=== PATIENT | female | born 1940 | race Caucasian/White ===

== ENCOUNTER 2018-06-14 13:41 | Inpatient (IN) ==
[2018-06-14] MEDS ORDERED: ZOFRAN IV ONE (14:55)
--- NOTE | 2018-06-14 14:57 | PROVIDER DOCUMENTATION ---
HPI-General Adult - General Chief Complaint: Abnormal Lab[s] Stated Complaint: ABNORMAL LABS Time Seen by Provider: 06/14/18 14:13 Source: patient Allergies/Adverse Reactions: Patient Allergies Allergy/AdvReac Type Severity Reaction Status Date / Time No Known Allergies Allergy Verified 06/14/18 14:08 Home Medications: Home Medication List Medication Instructions Recorded Confirmed Last Taken Type Multivit with Iron-Minerals 1 each PO DAILY #100 tablet 04/05/17 04/25/17 04/25/17 07:00 Rx [Centravites 50 Plus] 1 Ondansetron HCl [Zofran] 4 mg PO Q4H PRN PRN #10 tablet 04/05/17 04/25/17 04/24/17 12:00 Rx 4 Anastrozole [Arimidex] 1 mg PO DAILY 04/24/17 04/25/17 04/25/17 07:00 History 1 Calcitonin,[place],Synthetic 3.7 ml NS DAILY 04/24/17 04/25/17 04/25/17 07:00 History [Calcitonin-[place]] 3.7 Calcium 500 mg PO DAILY 04/24/17 04/25/17 04/25/17 07:00 History 500 Cephalexin [Keflex] 500 mg PO TID 04/24/17 04/25/17 04/25/17 07:00 History 500 Cholecalciferol (Vitamin D3) 10,000 unit PO DAILY 04/24/17 04/25/17 04/25/17 07:00 History [Vitamin D3] 36579 Diphenhydramine [Benadryl] 25 mg PO QHS 04/24/17 04/25/17 04/24/17 20:00 History 25 Gabapentin 300 mg PO BID 04/24/17 04/25/17 04/25/17 07:00 History 300 Loratadine 10 mg PO DAILY 04/24/17 04/25/17 04/24/17 20:00 History 10 Melatonin 5 mg PO QHS 04/24/17 04/25/17 04/24/17 20:00 History 5 Oxycodone HCl/Acetaminophen 1 each PO PRN PRN 04/24/17 04/25/17 04/25/17 07:00 History [Oxycodone-Acetaminophen 10-325] 1 Potassium Gluconate [Potassium] 99 mg PO DAILY 04/24/17 04/25/17 04/25/17 07:00 History 99 - History of Present Illness -Gen Adult Nature of Presenting Problems: reports that pt was sent here from [facility] for abnormal abd u/s, abn labs (potassium creatine), lethargic, weakness and nausea. pt has history of breast cancer, now mets to her bone, liver and has the intractable nausea. pt c/o nausea and weakness. had a bm last night. no sob, cp, diarrhea, vomiting, abd pain. Review of Systems - Adult - REVIEW OF SYSTEMS - ADULT Constitutional: reports: no symptoms reported Eyes: reports: no symptoms reported Ears, Nose, Mouth & Throat: reports: no symptoms reported Cardiovascular: reports: no symptoms reported Respiratory: reports: no symptoms reported Gastrointestinal: reports: no symptoms reported Genitourinary: reports: no symptoms reported Musculoskeletal: reports: no symptoms reported Integumentary: reports: no symptoms reported Neurological: reports: no symptoms reported Psychiatric: reports: no symptoms reported Endocrine: reports: no symptoms reported Hematologic/Lymphatic: reports: no symptoms reported Allergic/Immunologic: reports: no symptoms reported All Other Systems: Reviewed and Negative Past History - Adult - PAST MEDICAL HISTORY-ADULT Review of Records: reports: Old Records Reviewed, Nursing Assessment Review, Medications Reviewed, Social history reviewed & non-contributory. Major Childhood Illnesses: reports: denies history Cardiovascular: reports: denies history Respiratory: reports: denies history Gastrointestinal: reports: denies history Obstetrical/Gynecological: reports: denies history Genitourinary: reports: denies history Musculoskeletal: reports: denies history Neurological: reports: denies history Endocrine/Immune: reports: denies history Other Conditions: reports: denies history - IMMUNIZATION STATUS Childhood Immunizations: See Nurse Assessment Flu Vaccine: See Nurse Assessment - FAMILY HISTORY Family History: reviewed, not pertinent - SOCIAL HISTORY Smoking: denies Substance Use: none/never Alcohol Use Frequency: never Living Situation: family Physical Exam-General - CONSTITUTIONAL General Appearance: mild distress, cachetic, lethargic, slow to respond - EYES Eyes: other (mild vision impairment) - HEAD, EARS, NOSE, MOUTH & THROAT HENMT: normocephalic/atraumatic, other (oral dry mucous membrane, poor dental h ygeine) - NECK Neck: non-tender, full range of motion - RESPIRATORY Respiratory: chest non-tender, lungs clear, normal breath sounds - CARDIOVASCULAR Cardiovascular: normal peripheral pulses, tachycardia - GASTROINTESTINAL (ABDOMEN) Abdominal Exam: abnormal bowel sounds, distended, mass, hepatomegaly, splenomegaly - MUSCULOSKELETAL Back Exam: normal inspection Extremity: normal range of motion, pedal edema, swelling (b/l pitting 2+) Peripheral Pulses: radial (R): 2+, radial (L): 2+ - SKIN Integumentary: normal color, normal turgor, warm/dry - NEUROLOGIC Neurologic: grossly normal - PSYCHIATRIC Psych/Mental Status: other (weak voice.) Progress - PLAN OF CARE/RESULTS Progress/Plan/Lab Results: Vital Signs - 8 hr 06/14/18 14:03 Temperature 97.6 F Pulse Rate 93 H Respiratory Rate 18 Blood Pressure 111/70 O2 Sat by Pulse Oximetry 97 Orders Category Date Time Status Cardiac Monitoring DIRECTED Care 06/14/18 14:48 Active Oxygen Therapy- ED Nursing DIRECTED Care 06/14/18 14:48 Active Saline Loc NOW Care 06/14/18 14:48 Active CHEST-PORTABLE [RAD] Stat Exams 06/14/18 14:48 Ordered CBC WITH ELECTRONIC DIFF [HEME] Stat Lab 06/14/18 14:48 Uncollected CK PROFILE [SP CHEM] Stat Lab 06/14/18 14:48 Uncollected COMPREHENSIVE METABOLIC PANEL [CHEM] Stat Lab 06/14/18 14:48 Uncollected LACTATE, PLASMA [CHEM] Stat Lab 06/14/18 14:48 Uncollected PROTIME WITH INR [COAG] Stat Lab 06/14/18 14:48 Uncollected PTT [COAG] Stat Lab 06/14/18 14:48 Uncollected TROPONIN T Stat Lab 06/14/18 14:48 Uncollected URINALYSIS [URINALYSIS] Stat Lab 06/14/18 14:49 Uncollected Altered Mental Status Stat Oth 06/14/18 14:48 Ordered EKG [EKG] Stat Ther 06/14/18 14:48 Ordered [facility] [address], [address], [place] [id number] Department of Imaging Patient: AIDEN STYLES ADM Date: 06/11/18 MR#: [id number] : 1940 ADM Status: REG CLI Age/Sex: 78/F Room/Bed: Loc: US Ordering Physician: Meg Rich Family Physician: None,PCP Reason for Procedure: ELEVATED LFTS MET BR CA ___ Signed EXAM: US GB < RUQ (LIMITED) 06/11/2018 HISTORY: ELEVATED LFTS MET BR CA TECHNIQUE: Right upper quadrant ultrasound. COMMENT: There is ascites. The liver is markedly nodular in contour and inhomogeneous in echotexture. The common bile duct measures less than 4 mm. There is antegrade flow in the portal vein. There are some hypoechoic nodules throughout the liver. This is consistent with metastatic disease. There are no previous studies available for comparison. There is some apparent sludge within the gallbladder without apparent shadowing. There is no sonographic Garcia sign. The visualized portions of the aorta and inferior vena cava are within normal limits. The pancreatic head and body are normal in appearance. IMPRESSION: Ascites. Hepatic metastatic disease. Sludge ball in the gallbladder. Electronically signed by Mikey Mann 06/11/2018 9:30 AM 06/11/18929 Interpreting Physician: Mikey Mann MD Dictated Date/Time: 06/11/18926 cc: Meg Rich; None,PCP Result Diagrams: 06/14/18 15:14 06/14/18 15:14 - EKG 1 Time of EKG reading by physician:: 15:25 EKG Read and Signed by:: Codi Gordon EKG Interpretation (*Must complete 3 of following elements*): Normal Rate: 74 Rhythm: nsr [place]: normal QRS: normal [place] Interval: normal ST Wave: normal - CONSULTS/PCP/HOSPITALIST Notification #1 *Consult/PCP/Hospitalist*: Kaye Time Discussed: 16:59 (Hyperkalemia, ARF, ascites, hepatic met dz. ) Consult Disposition: Admit Departure - Departure Date of Disposition Decision: 06/14/18 Time of Disposition Decision: 16:55 DIAGNOSIS: Hyperkalemia, Acute renal failure, Breast cancer metastasized to liver, Ascites Disposition: ADMITTED INPATIENT 09 Certified Medical Emergency: Emergent Condition: Stable Referrals and Follow-Ups: None,PCP [Primary Care Provider] - - Critical Care Note This patient required my direct & personal management of CC.: Yes Total Time (mins): 37 Critical Care Statement: This patient required my direct personal management to treat or rule out processes, the absence of which, could potentiallly result in sudden, clinically significant life or limb threatening deterioration. Attestation - Physician/ SUNITA Attestation The physician spent face to face time with patient:: Yes Advanced Practice Provider documentation review:: Supervising physician onsite and consulted in the evaluation and care of this patient. The physician did have a face to face encounter with the patient.
[2018-06-14 15:32] LABS: EOS# 0.04 X1000 (0.0-0.7); EOS% 0.6 % (0.0-10.0); HEMATOCRIT 36.5 % (37.0-47.0); HEMOGLOBIN 11.8 g/dL (12.0-16.0); IMM GRAN# 0.03 X1000 (0.0-0.04); IMM GRAN% 0.4 % (0.0-0.5); LYMPH# 0.87 X1000 (1.2-3.4); LYMPH% 12.7 % (20.5-51.1); MCH 29.1 PG (27-31); MCHC 32.3 g/dL (33-37); MCV 89.9 FL (81-99); MONO# 0.91 X1000 (0.11-0.59); MONO% 13.3 % (1.7-9.3); MPV 8.8 FL (7.4-10.4); PLT 278 X1000 (130-400); RBC 4.06 XMIL (4.2-5.4); RDW 17.2 % (11.5-14.5); WBC 6.85 X1000 (4.8-10.8)
--- NOTE | 2018-06-14 15:34 | Diag Imaging Result Doc PS360 ---
EXAM: CHEST-PORTABLE - 06/14/2018 HISTORY: weakness TECHNIQUE: Portable chest COMPARISON: 03/27/2017 FINDINGS: Heart size is normal. Inspiration is somewhat shallow. There is mild scarring at the lung bases. There is no dense consolidation, substantial pleural effusion, or pneumothorax identified. The bony structures are somewhat heterogeneous similar to the prior exam. IMPRESSION: Somewhat shallow inspiration. Mild basilar scarring. No other discrete acute changes. Electronically signed by Kp Booth 06/14/2018 3:32 PM
[2018-06-14 15:40] LABS: INR 1.22; PROTIME 16.3 Seconds (11.0-16.0)
[2018-06-14 15:41] LABS: PTT 33.2 Seconds (22.3-41.8)
[2018-06-14 16:15] LABS: ALB/GLOB RATIO 0.9; ALBUMIN 3.1 g/dL (3.5-5.0); CALCIUM 7.7 mg/dL (8.8-10.2); CREATININE 4.8 mg/dL (0.5-0.9); TOTAL BILIRUBIN 0.61 mg/dL (0.20-1.00); TOTAL PROTEIN 6.7 g/dL (6.3-8.3)
[2018-06-14 16:19] LABS: POTASSIUM 6.3 mmol/L (3.5-5.1)
[2018-06-14 16:23] LABS: URINE SOURCE CLEAN CATCH
[2018-06-14 16:29] LABS: CK INDEX 4.6 (0.0-2.5); CK-MB 19.59 ng/mL (0.0-5.0)
[2018-06-14 16:30] LABS: BILIRUBIN URINE SMALL (NEGATIVE); BLOOD URINE MODERATE (NEGATIVE); COLOR YELLOW; GLUCOSE URINE TRACE mg/dL (NEGATIVE); KETONE URINE TRACE mg/dL (NEGATIVE); LEUKOCYTES URINE TRACE (NEGATIVE); NITRITE URINE NEGATIVE (NEGATIVE); PH URINE 5.5; PROTEIN URINE 100 mg/dL (NEGATIVE); SP GRAVITY URINE 1.018; TURBIDITY URINE TURBID (CLEAR); UROBILINOGEN URINE 2 mg/dL (NORMAL)
[2018-06-14 16:32] LABS: UR EPITHELIAL CELLS >10 /HPF (<10); URINE BACTERIA NEGATIVE /HPF
[2018-06-14] MEDS ORDERED: NS 500 ML IV ONE (16:37)
[2018-06-14] MEDS ORDERED: CALCIUM GLUCONATE IV PUSH ONE (16:37)
[2018-06-14 16:47] LABS: URINE CASTS NONE SEEN; URINE CRYSTALS CA OXALATE PRESENT; URINE SMALL ROUND CELLS NONE SEEN; URINE YEAST NONE SEEN
[2018-06-14] MEDS ORDERED: HUMULIN R IV ONE (16:53)
[2018-06-14] MEDS ORDERED: D50W SYRINGE IV ONE (16:53)
[2018-06-14] MEDS ORDERED: NS 1,000 ML IV ONE (18:05)
[2018-06-14] MEDS ORDERED: TYLENOL PO PRN (18:57)
[2018-06-14] MEDS ORDERED: ZOFRAN IV PRN (18:57)
[2018-06-14] MEDS ORDERED: NS 1,000 ML IV SCH (19:00)
--- NOTE | 2018-06-14 21:12 | HISTORY AND PHYSICAL ---
PRIMARY CARE PROVIDER: ANDREE Queen. PRIMARY ONCOLOGIST: Dr. Freda Morales. CHIEF COMPLAINT: She complains of pain all over her body. She was actually sent here from the [facility] due to acute kidney injury. HISTORY OF PRESENT ILLNESS: Ms. Lesa Nielson is 78-year-old female with a medical history of breast cancer with bilateral mastectomies, receiving chemotherapy, followed by Dr. Morales. She is a very, very poor historian. She had a friend with her, so it was difficult to obtain very much information. I believe she is on an oral chemotherapy medication but it is unclear. She does have a history of dementia. In March of 2017, she was diagnosed the breast cancer and had her mastectomies. Now it has metastasized to bone and liver. She was at Dr. Morales's office today where they did routine labs and found that she was in acute kidney injury. The patient was called back to the Emergency Department from home. Here she is found to be hyperkalemic with potassium of 6.3. BUN is 73 and creatinine is 4.8. We will admit her, do some hydration. She is complaining of a lot of generalized pain, so we will continue her home medications for that. We will work her up renal rosas and consult Nephrology. PAST MEDICAL HISTORY: 1. Urinary tract infection history. 2. Arthritis. 3. Dementia. 4. Bilateral breast cancer with mastectomies. PAST SURGICAL HISTORY: 1. Right groin lymph node removal in the past. 2. Bilateral mastectomies. SOCIAL HISTORY: Denies tobacco. States she only drinks beer maybe once a month. Lives with her friend. She is with 3 children. FAMILY HISTORY: Positive for stroke and cancer. ALLERGIES: No known drug allergies. HOME MEDICATIONS: 1. Benazepril 5 mg p.o. nightly. 2. Fentanyl patch every 3 days. 3. Percocet 10 mg, one tab p.o. q.4h. 4. Calcitonin daily. 5. Neurontin 100 mg p.o. twice daily. 6. Iron 325 mg p.o. twice daily. 7. Lexapro 10 mg p.o. daily. 8. Omeprazole 40 mg p.o. twice daily. 9. Terbinafine topical twice daily. 10.Trazodone 50 mg p.o. daily. REVIEW OF SYSTEMS: Difficult to obtain. She just complains of pain all over her body but otherwise that is all I could get out of her. PHYSICAL EXAMINATION: VITAL SIGNS: Temperature 97.6 degrees, heart rate 74, respiratory rate 11, blood pressure 115/57, oxygen saturation 97% on room air. GENERAL: Ms. Lesa Nielson is a 78-year-old female. She is really not in acute distress; she just moans and groans about generalized body pain. She will answer some questions but she is very hard of hearing. HEENT: She keeps her eyes closed. Pupils are equal and reactive. She is atraumatic, normocephalic. She will not keep her eyes open long enough to perform extraocular movements. She has dry mucous membranes. NECK: Trachea is midline. CARDIOVASCULAR: S1, S2, regular rate and rhythm. No rubs, gallops, or murmurs. No lower extremity edema; +2 dorsalis and radial pulses. Negative JVD or carotid bruits. PULMONARY: Clear to auscultate bilateral breath sounds. No accessory muscle use or work of breathing noted. GASTROINTESTINAL: Soft, nontender, nondistended. Positive bowel sounds. EXTREMITIES: Moans and groans when I try to get her to perform range of motion. She is equal in strength on both sides. NEUROLOGIC: Oriented x name and place only. SKIN: Warm, dry, intact. LABORATORY DATA: White blood cell count 6000, hemoglobin 11, hematocrit 36, platelet count 278. INR is 1.22, PTT 33.2. Sodium 131, potassium 6.1, BUN 76, creatinine 4.8, glucose 135, calcium 7.7, bilirubin 0.61. AST 146, AST 41. CPK 425. Troponin 0.113. Albumin 3.1, lactate 2.0. Urinalysis with 100 protein, trace ketones, moderate blood, trace leukocytes, 10-20 white blood cells, 10-20 red blood cells; negative for bacteria. IMAGING: Chest x-ray: Somewhat shallow inspiration, mild basilar scarring. No acute findings. ASSESSMENT AND PLAN: 1. Acute kidney injury. Could be dehydration. It is difficult to get information. It could be medication induced. We will consult Nephrology. We will order an ultrasound of the renal system. Give her IV fluids and recheck it in the morning. Monitor her I's and O's. She has a Hoff catheter. 2. Hyperkalemia secondary to acute kidney injury. She received calcium gluconate, dextrose, insulin, IV fluids, and there is a pending recheck on the potassium level. 3. She has a history of breast cancer. We will consult Dr. Morales. 4. Metabolic encephalopathy. Hopefully this should improve with kidney function improvement. 5. Chronic pain syndrome secondary to metastasis of the breast cancer into the bone. We will continue her Percocet and fentanyl patch. Dictated by ANDREE Ambriz for Parker Anderson MD cc: ANDREE Ambriz MD
[2018-06-14 22:12] LABS: UR CREAT RANDOM 196.1 mg/dL (11-20)
[2018-06-14 22:27] LABS: CALCIUM 7.7 mg/dL (8.8-10.2); CREATININE 5.3 mg/dL (0.5-0.9)
[2018-06-14] MEDS ORDERED: DESYREL PO SCH (22:27)
[2018-06-14] MEDS ORDERED: NEURONTIN PO SCH (22:27)
[2018-06-14] MEDS ORDERED: PERCOCET-10 PO PRN (22:27)
[2018-06-14] MEDS ORDERED: ARICEPT PO SCH (22:27)
[2018-06-14 22:28] LABS: POTASSIUM 6.6 mmol/L (3.5-5.1)
[2018-06-14] MEDS ORDERED: KAYEXALATE PO ONE (22:36)
[2018-06-14] MEDS ORDERED: ALBUTEROL 0.5% INH CONC FOR HYPERKALEMIA INH ONE (22:36)
[2018-06-14 22:37] LABS: CK INDEX 4.6 (0.0-2.5); CK-MB 20.23 ng/mL (0.0-5.0)
[2018-06-14] MEDS: ALBUTEROL NEB INH SCH ×3 (22:59→23:01)
[2018-06-14] MEDS: PRILOSEC PO SCH (23:12)
[2018-06-14] MEDS: FERROUS SULFATE PO SCH (23:12)
[2018-06-15 02:58] LABS: CK INDEX 4.5 (0.0-2.5); CK-MB 19.46 ng/mL (0.0-5.0)
[2018-06-15] MEDS: ALBUTEROL NEB INH SCH ×3 (03:30→11:24)
[2018-06-15] MEDS ORDERED: NARCAN IV ONE (08:13)
[2018-06-15 08:15] LABS: BLOOD TYPE ARTERIAL; SAMPLE BLOOD
[2018-06-15 08:16] LABS: ALLEN TEST YES; BE -24.8 mmoll (-3.0-3.0); HCO3-(ACT) 5.6 mmoll (20.0-26.0); METHB 1.1 % (0.0-1.5); O2(CT) 14.6 mL/dL (15.0-23.0); O2HB 96.8 % (95.0-99.0); PO2(98.6) 137 mmHg (60-100); SAO2 98.7 % (95.0-100.0); THB 10.5 g/dL (11.5-17.4)
[2018-06-15] MEDS ORDERED: NARCAN ONE (08:16)
[2018-06-15 08:18] LABS: pH(98.6) 7.02 (7.35-7.45)
[2018-06-15 08:19] LABS: MODALITY CANNULA; PCO2(98.6) 17 mmHg (35-45)
[2018-06-15 08:21] LABS: INR 1.37; PROTIME 17.9 Seconds (11.0-16.0)
[2018-06-15 08:22] LABS: PTT 35.1 Seconds (22.3-41.8)
[2018-06-15 08:29] LABS: BASO# 0.01 X1000 (0.0-0.2); BASO% 0.1 % (0.0-0.8); EOS# 0.02 X1000 (0.0-0.7); EOS% 0.2 % (0.0-10.0); HEMATOCRIT 36.7 % (37.0-47.0); HEMOGLOBIN 11.3 g/dL (12.0-16.0); IMM GRAN# 0.14 X1000 (0.0-0.04); IMM GRAN% 1.7 % (0.0-0.5); LYMPH# 1.05 X1000 (1.2-3.4); MCH 28.9 PG (27-31); MCHC 30.8 g/dL (33-37); MCV 93.9 FL (81-99); MONO# 0.94 X1000 (0.11-0.59); MONO% 11.6 % (1.7-9.3); MPV 9.2 FL (7.4-10.4); NEUT# 5.92 X1000 (1.4-6.5); NEUT% 73.4 % (42.2-75.2); PLT 262 X1000 (130-400); RBC 3.91 XMIL (4.2-5.4); RDW 18.3 % (11.5-14.5); WBC 8.08 X1000 (4.8-10.8)
[2018-06-15 08:44] LABS: ALB/GLOB RATIO 0.7; ALBUMIN 2.9 g/dL (3.5-5.0); CREATININE 5.2 mg/dL (0.5-0.9); MAGNESIUM 3.1 mg/dL (1.5-2.7); TOTAL BILIRUBIN 0.54 mg/dL (0.20-1.00); TOTAL PROTEIN 6.9 g/dL (6.3-8.3)
[2018-06-15] MEDS ORDERED: MAXIPIME 2 GM in NS 100 ML IV ONE (08:46)
[2018-06-15] MEDS ORDERED: SODIUM BICARBONATE 8.4% IV PUSH ONE ×2 (08:49→11:48)
[2018-06-15 08:55] LABS: BANDS 2 % (0-1); LYMPHS 8 % (21-51); MONO 2 % (1-9); SEGS 86 % (42-75)
[2018-06-15] MEDS ORDERED: FORTICAL NAS SCH (09:00)
[2018-06-15] MEDS ORDERED: LEXAPRO PO SCH (09:00)
[2018-06-15 09:01] LABS: POTASSIUM 6.3 mmol/L (3.5-5.1)
[2018-06-15] MEDS: FERROUS SULFATE PO SCH (09:10)
[2018-06-15] MEDS: PRILOSEC PO SCH (09:11)
[2018-06-15] MEDS ORDERED: HUMULIN R SUBQ ONE (09:11)
[2018-06-15] MEDS ORDERED: D50W SYRINGE IV ONE (09:12)
[2018-06-15] MEDS ORDERED: LACTULOSE PO ONE (09:25)
[2018-06-15] MEDS ORDERED: NS 1,000 ML IV SCH (09:29)
[2018-06-15] MEDS ORDERED: ALBUTEROL 0.5% INH CONC FOR HYPERKALEMIA INH ONE (09:42)
[2018-06-15] MEDS ORDERED: LR 1,000 ML IV SCH (09:45)
[2018-06-15] MEDS ORDERED: MAXIPIME 1 GM in NS 50 ML IV SCH (10:00)
[2018-06-15] MEDS ORDERED: VANCOMYCIN 1 GM/NS 1 GM/250 ML IVPB IV ONE (10:00)
--- NOTE | 2018-06-15 10:18 | Diag Imaging Result Doc PS360 ---
EXAM: CT HEAD W/O CONTRAST INDICATION: unresponsive TECHNIQUE: This exam was performed using automated exposure control, adjustment of mA or kV according to patient size, and/or use of iterative reconstruction technique. COMPARISON: MRI dated 04/30/2017. No prior head CT is available for comparison. FINDINGS: There is stable right occipital encephalomalacia. There is no definite acute infarct given the limited sensitivity of CT versus MRI. There is no discrete intracranial mass, mass effect, or intracranial hemorrhage. The surrounding soft tissues and bony structures are essentially unremarkable. IMPRESSION: Stable right occipital encephalomalacia but no evidence of acute intracranial pathology by CT. Electronically signed by Ash Holm 06/15/2018 10:16 AM
[2018-06-15] MEDS ORDERED: VANCOMYCIN IV PER PHARMACY MISC SCH (10:25)
--- NOTE | 2018-06-15 10:36 | Diag Imaging Result Doc PS360 ---
EXAM: CT THORAX/ABD/PELVIS W/O CON INDICATION: sob; distended abd TECHNIQUE: This exam was performed using automated exposure control, adjustment of mA or kV according to patient size, and/or use of iterative reconstruction technique. COMPARISON: None. FINDINGS: CHEST: There are consolidations at both lung bases suggesting possible aspiration pneumonia. There is also at least a component of atelectasis. There is a 3 mm noncalcified nodule in the inferior left upper lobe that is nonspecific but probably represents a tiny granuloma. There is no pleural fluid collection and there is no pneumothorax. An NG tube is in place. There is some oral contrast and gas in the esophagus indicating a degree of gastroesophageal reflux. The heart is mildly prominent. No significant mediastinal or hilar lymphadenopathy can be identified given the limitations of unenhanced CT. There is diffuse sclerotic metastases throughout the thoracic skeleton. ABDOMEN/PELVIS: There is large volume ascites throughout the abdomen and pelvis. The liver is very heterogeneous throughout likely representing diffuse metastatic disease to the liver. Full evaluation is limited with no IV contrast. The gallbladder is not clearly identified. The spleen is unremarkable. The pancreas is difficult to appreciate on this unenhanced study. The visualized portion is grossly unremarkable. The adrenal glands and kidneys are grossly unremarkable. There is a Hoff catheter in the urinary bladder and it is decompressed. There appears to be a coarse calcific density associated with the uterus on the left that could represent a calcified uterine fibroid. As imaged with unenhanced CT, the reproductive tract is grossly unremarkable, otherwise. No bowel wall thickening is noted and there is no evidence of bowel obstruction. The greater omentum appears thickened and edematous. This may simply be due to the adjacent ascites. Carcinomatosis cannot be excluded, however. There are diffuse sclerotic metastases throughout the lumbar spine, sacrum, pelvis, and hips. IMPRESSION: 1.Consolidations at the lung bases suggesting possible aspiration pneumonia and also atelectasis. 2.Oral contrast and gas in the esophagus suggesting some degree of gastroesophageal reflux. 3.Large volume ascites. 4.Very heterogeneous liver likely representing diffuse metastatic disease. 5.Edematous and thickened greater omentum that may simply be due to the ascites. However, mesenteric carcinomatosis is not excluded. 6.Diffuse skeletal metastases. Electronically signed by Ash Holm 06/15/2018 10:34 AM
[2018-06-15 10:52] LABS: ALLEN TEST YES; BE -21.9 mmoll (-3.0-3.0); BLOOD TYPE ARTERIAL; HCO3-(ACT) 7.8 mmoll (20.0-26.0); METHB 0.9 % (0.0-1.5); O2(CT) 13.2 mL/dL (15.0-23.0); O2HB 93.9 % (95.0-99.0); PCO2(98.6) 24 mmHg (35-45); PO2(98.6) 86 mmHg (60-100); SAMPLE BLOOD; SAO2 95.7 % (95.0-100.0); THB 9.9 g/dL (11.5-17.4)
--- NOTE | 2018-06-15 10:52 | PROGRESS NOTE ---
DATE: 06/15/2018 SUBJECTIVE: This morning, I saw Ms. Nielson in her room. There is a male family friend who was also there. I was made to understand that Ms. Nielson got admitted yesterday mainly because of abnormal labs from her Oncology office. After talking to the daughter, I also gathered that Ms. Nielson has known case of bilateral breast cancer status post bilateral mastectomy. Follows up with Dr. Morales, and she gets a monthly injection for some bone maintenance therapy. She has been having this abdominal distention for a couple weeks. She went to her oncologist yesterday for her monthly injection, and was sent to do labs and also an ultrasound. She was sent to the emergency room because of abnormal labs. In the emergency room she was seen and evaluated and got admitted. Briefly, it appears that her CBC was fairly unremarkable by her chemistry on admission that did show a potassium of 6.3, a sodium of 131. Bicarb at the time was 19 and creatinine was 4.8. Liver enzymes were also abnormal. She was subsequently admitted for further medical care. This morning, she is less responsive. Early on, she was even a whole lot less responsive than now. Her fentanyl patch was removed and Narcan was given to her. Since then, there has been more groaning and more interaction than before. OBJECTIVE: Current vitals: Blood pressure is 64/48. A repeat showed that it had improved to 101/70 with a pulse of 68 and respiration rate of 25. Temperature is 98.9 degrees. The patient was saturating about 92%, is currently about 93%. General exam: Ms. Nielson is a 78-year-old elderly female. She was in bed. She seems to be tachypneic. Mucosa is slightly dry, anicteric and acyanotic Neck: Some rigidity, but it is in all planes. She has nonfocalizing neck. There was no JVD. Chest: Air entry was bilaterally reduced. I did not hear any crepitations or rhonchi Cardiovascular: Slightly tachycardic, but no murmurs, no rubs, no gallops. Abdomen: Soft and is distended. The patient seems to groan a little bit more when you palpate the abdomen. There were bowel sounds present. Extremities: Trace to 1+ pedal edema. Distal pulses were present. GENERAL ACCOUNTING MANAGER: The patient is inattentive, will open her eyes. Occasionally will follow some basic commands. She was able to stick out her tongue when I asked her to, and she was able to wiggle her toes when I asked her, but for the most part she looks very inattentive, non engaging and does not follow commands, but she will withdrawal all her extremities and she has eye opening. LABORATORY DATA: WBC is currently at 8.08, hemoglobin is 11.3, platelet count of 263. Coagulation panel shows PT of 17.9, INR is 1.37. Chemistry is also reviewed. Sodium is 135, potassium is 6.3, chloride is 97, bicarbonate is down to 6 with an anion gap of 32. BUN has gone up to 72 and creatinine is up to 5.6. Liver enzymes are also trending up. No cultures have been done yet. MEDICATIONS: I have reviewed current medications and I withheld all her home medications for now. IMAGING STUDIES: Currently there is a chest x-ray that did show shallow inspiration. There is mild bibasilar scarring. No other discrete acute changes. ASSESSMENT: 1. Altered mental status likely a combination of renal/ metabolic and probably drug related. Questionable if there is any infectious component. We will continue correcting the acid base and the metabolic component, and also cover the patient broadly with intravenous antibiotics. Cultures have been done, and we will follow accordingly. 2. Acute kidney injury. The patient seems to be currently anuric was hypotensive. ATN is very likely. There is an ultrasound from the twenty-third, which did not seem to have any obstructive pattern, but this was mainly on the right upper quadrant. There was no mention of the kidneys. So, we are going to do a CT scan of the abdomen and pelvis to give us a better idea what is going on in the intra- abdominal cavity. 3. Severe high anion gap metabolic acidosis secondary to lactic acid. On the arterial blood gas, lactic acid has gone to 12.6. I presume this is all from hypoperfusion. We are going to continue with intravenous fluids. 4. Hypotension. We think this is a combination of hypovolemic shock and probably also sepsis. Drugs could also be confounding to this. Her fentanyl patch has been removed. Blood pressure has improved with intravenous resuscitation. Patient will be transferred to the intensive care unit. Cultures have been done. Antibiotics have been started, and we will trend her vitals. 5. History of metastatic breast cancer to bones and to liver. 6. Transaminitis presumably from the metastatic disease to the liver on top of what seems to be now shocky liver. 7. Tachypneic. I think it is just a response to the severe metabolic acidosis. However, the ABG shows that the patient is also actually retaining pCO2. We are going to repeat this. If the trend continues to return, we will intubate the patient at least to get the respiratory part under control as we prado with the metabolic component. PLAN: So, in general, Ms. Nielson is critically sick. I have reached out to the daughter on the phone. For now, she is still not very sure what the other siblings want to do in terms of resuscitation status, and she says she will call us back. So for now Ms. Nielson continues to be full code, so we are going to move her to the ICU. We also discussed the possibility that Ms. Nielson will need dialysis, and the daughter is fine with that. So, Nephrology has been consulted and will also consult Surgery this morning for better IV access, which might probably be needed for dialysis as well. CRITICAL TIME SPENT: One hour. cc: Leroy Christian MD MTDD
[2018-06-15 10:53] LABS: MODALITY CANNULA
[2018-06-15 10:54] LABS: pH(98.6) 7.06 (7.35-7.45)
--- NOTE | 2018-06-15 11:38 | GENERAL SURGERY CONSULTATION ---
DATE: 06/15/2018 HISTORY OF PRESENT ILLNESS: This is a 78-year-old female with a history of breast carcinoma. She presents with encephalopathy, hyperkalemia, lactic acidosis. She was transferred to the ICU for further management. Dr. Teixeira is treating her hyperkalemia medically at this point. She does have dementia. 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 She is obtunded, nonresponsive. In speaking with Dr. Teixeira, he does not plan dialysis at this juncture. PAST MEDICAL HISTORY: History of UTI, arthritis, dementia, breast cancer treated by Dr. Morales. She has had bilateral mastectomies, now with metastasis. PAST SURGICAL HISTORY: Excision of right groin lymph node and bilateral mastectomy. SOCIAL HISTORY: Occasional alcohol. No tobacco. She does have children, none of who are accessible at this juncture. Friend is in and out of the ICU. FAMILY HISTORY: Significant for cancer. REVIEW OF SYSTEMS: Not obtainable. PHYSICAL EXAMINATION: Vital signs: Temperature is 98.9 degrees, pulse 113, blood pressure 106/43, oxygen saturation is 97%. General: She appears awake but nonresponsive. HEENT: No scleral icterus. Cardiovascular: Sinus tachycardia. Pulmonary: Breathing is somewhat labored. Abdomen: Tensely distended, non tympanic with no palpable mass. No peritonitis. Integument: Warm, dry. Extremities: She has peripheral vascular lower extremity edema. Psychiatric: Nonresponsive. Neurologic: Nonresponsive. LABORATORY DATA: White count is 8, hematocrit 36, platelets 262,000. pH is 7.02 with a bicarb of 17, O2 of 137. Lactate is 12.6. Potassium is 5.6, creatinine is 5.2. Bilirubin 0.54. AST, ALT, and alkaline phosphatase are all elevated. Troponins are elevated and climbing. Urinalysis is positive. I reviewed her CT scan of the head that shows chronic changes, and her CT of the abdomen that shows metastatic disease with ascites. ASSESSMENT AND PLAN: A 78-year-old female who is profoundly ill. This is end stages of her metastatic carcinoma. Dr. Morales has been consulted. I have talked to Dr. Teixeira. He does not plan to start dialysis for fear of making her worse, and will treat her kalemia medically. We would be happy to place IV access, but currently she has 2 good peripheral veins per the nurse and has adequate access from a medication administration standpoint. We will hold off on placing dialysis access at this juncture but would be happy to if in the future she needs this. cc: Cherrie Best MD
--- NOTE | 2018-06-15 11:45 | NEPHROLOGY CONSULTATION ---
DATE: 06/15/2018 REASON FOR CONSULTATION: Acute kidney injury and metabolic acidosis with hyperkalemia. HISTORY OF PRESENT ILLNESS: Ms. Nielson is a 78-year-old white female who was admitted to the hospital on yesterday. She was seen in [facility] [place] and had labs collected. She was contacted at home and instructed to present to the emergency room because of abnormal labs. She has breast cancer, for which she had bilateral mastectomy approximately 1 year ago. She now has extensive metastases including bone and liver. On presentation she complained of weakness and nausea. She also had constipation pain but no shortness of breath. Her initial evaluation in the emergency room found her blood pressure to be 111/70, with heart rate 93, respiration 18. She was admitted to the floor where she was treated with IV fluids but no empiric antibiotics. Her home narcotics were continued. Over the evening she had essentially no urine output and developed progressive hypotension. This morning, she was tachycardic, hypotensive, unresponsive. Her repeat evaluation today found worsening hyperkalemia, profound metabolic acidosis, and worsening renal function. She is being moved to the intensive care unit. She is receiving aggressive volume resuscitation, IV bicarbonate, IV antibiotics. She received Narcan and her fentanyl was removed. We were asked to assist with her management. Her outpatient chemotherapy regimen is not immediately available to me. I have reached out to Dr. Morales. PAST MEDICAL HISTORY: As above. She also has a history of dementia and arthritis. HOME MEDICATIONS: Her home medications include oxycodone, donepezil, gabapentin, omeprazole, iron, terbinafine, escitalopram, trazodone, fentanyl, and calcitonin. ALLERGIES: None. Social history, family history and review of systems are obtained only through the chart. She is and has 3 adult children. Lives with a friend. PHYSICAL EXAMINATION: Vital Signs: Blood pressure 64/48, heart rate 51, respirations 25, afebrile. General: She is unresponsive and acutely ill. She does not respond to any verbal stimuli. She does moan and move extremities spontaneously but in a limited fashion. She has rather diffuse muscle rigidity such that I cannot passively open her mouth and her neck is stiff, but she also has stiffness in her elbows and hips. Skin: Cool and dry, with some mottling around the knees. HEENT: Pupils are equal. Conjunctivae are pink. Oropharynx is not examined. Neck: Neck veins are not clearly elevated. No hepatojugular reflux could be elicited. Carotid upstroke is symmetrical. Trachea is midline. Heart: PMI is nondisplaced. Regular rate and rhythm. No gallops. Lungs: The lungs have equal excursion, equal breath sounds. No crackles. Abdomen: Distended, but somewhat firm. Bowel sounds are not appreciated. No palpable organomegaly. No discrete tenderness. Extremities: The extremities have no edema, clubbing, or cyanosis. Distal pulses are difficult to palpate in the feet but normal capillary refill. Neurologic: Nonfocal except as above. IMPRESSION: 1. Acute kidney injury. Likely acute tubular necrosis secondary to sepsis. Volume resuscitation in order to exclude prerenal causes is appropriate. Abdominal imaging. She does not require dialysis at this time but may develop indications very soon. 2. Hyperkalemia. This has been treated with insulin and albuterol. I do not believe that using the GI tract is either practical or advisable so we will simply use the above and observe her response. She may require dialysis if it does not improve. 3. Metabolic acidosis. Pure anion gap acidosis with markedly elevated serum lactate. No other obvious cause. Likely secondary to sepsis, and supportive measures are appropriate. Target pH greater than 7.15. May require intubation though she is compensating appropriately at this time. Revisit in ICU. Eyes open. Mumbles a few words. Moves legs spontaneously. Will change IVF to D5w bicarbonate. cc: Aroldo Teixeira MD [facility]
[2018-06-15] MEDS ORDERED: SODIUM BICARBONATE 8.4% ONE (11:54)
[2018-06-15] MEDS: LOKELMA POWDER PACKET PO SCH (12:01)
[2018-06-15] MEDS: SODIUM BICARBONATE 8.4% 150 MEQ in D5W 1,000 ML IV SCH ×2 (13:28→22:46)
--- NOTE | 2018-06-15 14:30 | Diag Imaging Result Doc PS360 ---
US ABD PARACENTESIS W S/I - 06/15/2018 INDICATION: ascites COMPARISON: 06/11/2018 FINDINGS: Limited sonographic views of the abdomen were provided, which were performed for localization purposes prior to paracentesis performed by Dr. Christian. Large volume ascites is noted similar to the previous study. IMPRESSION: Large volume ascites as described. Electronically signed by Ash Holm 06/15/2018 2:28 PM
[2018-06-15] MEDS ORDERED: ALBUMIN 25% IV ONE (14:46)
[2018-06-15 15:02] LABS: BODY FLUID SOURCE PERITONEAL FLUID; WBC BF 385 /cumm
[2018-06-15 15:06] LABS: MONOS 68 %; POLYS 32 %
[2018-06-15 15:17] LABS: BASO# 0.02 X1000 (0.0-0.2); BASO% 0.3 % (0.0-0.8); EOS# 0.01 X1000 (0.0-0.7); EOS% 0.1 % (0.0-10.0); HEMATOCRIT 32.3 % (37.0-47.0); HEMOGLOBIN 10.2 g/dL (12.0-16.0); IMM GRAN# 0.07 X1000 (0.0-0.04); IMM GRAN% 0.9 % (0.0-0.5); LYMPH# 0.73 X1000 (1.2-3.4); LYMPH% 9.3 % (20.5-51.1); MCH 29.2 PG (27-31); MCHC 31.6 g/dL (33-37); MCV 92.6 FL (81-99); MONO# 1.14 X1000 (0.11-0.59); MONO% 14.6 % (1.7-9.3); NEUT# 5.86 X1000 (1.4-6.5); NEUT% 74.8 % (42.2-75.2); PLT 188 X1000 (130-400); RBC 3.49 XMIL (4.2-5.4); WBC 7.83 X1000 (4.8-10.8)
--- NOTE | 2018-06-15 15:17 | OPERATIVE NOTE ---
PROCEDURE DATE: 06/15/2018 TIME OF PROCEDURE: 2:15 p.m. TYPE OF PROCEDURE: Large volume paracenteses. INDICATION: Newly diagnosed large ascites for both therapeutic and diagnostic purposes. PROCEDURE DESCRIPTION: Ms Nielson was completely altered so she could not give consent by herself. The nurses reached out to the daughter who gave consent for paracenteses to be done. Ultrasound was used to localize the deepest pocket. This was subsequently marked. The skin was prepped in sterile fashion and 1% lidocaine was used as a local anesthetic agent. A little niche was subsequently made at the marked area and the paracentesis trocar was advanced under negative pressure until ascitic fluid was obtained. The trocar was advanced and the needle was retrieved. An initial 50 mL of cloudy, straw colored fluid was initially aspirated for analysis. Subsequently, the draining system was attached and a total of 5850 mL of ascitic, cloudy, straw-looking color fluid was obtained. The patient tolerated the procedure very well. Postoperative vitals remain stable. The fluid was sent to the lab for analysis. No immediate post complications and very minimal blood loss during the procedure. cc: Leroy Christian MD MTDD
[2018-06-15 15:25] LABS: TOTAL PROT BODY FLUID 3.6 g/dL
[2018-06-15 15:29] LABS: LYMPHS 8 % (21-51); MONO 10 % (1-9); NRBC 2 % (0-0); SEGS 80 % (42-75)
[2018-06-15 15:31] LABS: ALBUMIN BODY FLUID 1.9 g/dL; AMYLASE BODY FLUID 35 U/L
[2018-06-15 16:13] LABS: ALB/GLOB RATIO 0.7; ALBUMIN 2.5 g/dL (3.5-5.0); CALCIUM 7.4 mg/dL (8.8-10.2); CREATININE 5.7 mg/dL (0.5-0.9); MAGNESIUM 2.7 mg/dL (1.5-2.7); PHOSPHORUS 7.6 mg/dL (2.7-4.5); POTASSIUM 5.3 mmol/L (3.5-5.1); TOTAL BILIRUBIN 0.55 mg/dL (0.20-1.00); TOTAL PROTEIN 6.2 g/dL (6.3-8.3)
[2018-06-15 17:41] LABS: URINE SOURCE CATH
[2018-06-15 18:03] LABS: BILIRUBIN URINE NEGATIVE (NEGATIVE); BLOOD URINE LARGE (NEGATIVE); COLOR YELLOW; GLUCOSE URINE 100 mg/dL (NEGATIVE); KETONE URINE NEGATIVE (NEGATIVE); LEUKOCYTES URINE SMALL (NEGATIVE); NITRITE URINE NEGATIVE (NEGATIVE); PROTEIN URINE 300 mg/dL (NEGATIVE); SP GRAVITY URINE 1.013; TURBIDITY URINE HAZY (CLEAR); UROBILINOGEN URINE NORMAL (NORMAL)
[2018-06-15 18:04] LABS: UR EPITHELIAL CELLS <10 /HPF (<10); URINE BACTERIA NEGATIVE /HPF; URINE RBC TNTC /HPF (<10); URINE WBC 20-40 /HPF (<10)
[2018-06-15 18:05] LABS: UR CREAT RANDOM 71.1 mg/dL (11-20)
[2018-06-15] MEDS: LACTULOSE PO SCH (21:12)
[2018-06-15] MEDS: APIDRA SUBQ SCH (21:13)
[2018-06-15] MEDS: NEO-SYNEPHRINE 50 MG in NS 250 ML IV SCH (22:06)
[2018-06-16 03:29] LABS: BASO# 0.03 X1000 (0.0-0.2); BASO% 0.4 % (0.0-0.8); EOS# 0.04 X1000 (0.0-0.7); EOS% 0.5 % (0.0-10.0); HEMATOCRIT 28.1 % (37.0-47.0); HEMOGLOBIN 9.2 g/dL (12.0-16.0); IMM GRAN# 0.04 X1000 (0.0-0.04); IMM GRAN% 0.5 % (0.0-0.5); LYMPH# 1.12 X1000 (1.2-3.4); LYMPH% 13.1 % (20.5-51.1); MCH 29.5 PG (27-31); MCHC 32.7 g/dL (33-37); MCV 90.1 FL (81-99); MONO% 16.4 % (1.7-9.3); NEUT# 5.91 X1000 (1.4-6.5); NEUT% 69.1 % (42.2-75.2); PLT 173 X1000 (130-400); RBC 3.12 XMIL (4.2-5.4); RDW 17.6 % (11.5-14.5); WBC 8.54 X1000 (4.8-10.8)
[2018-06-16 03:45] LABS: ALB/GLOB RATIO 1.2; ALBUMIN 3.3 g/dL (3.5-5.0); CREATININE 5.9 mg/dL (0.5-0.9); MAGNESIUM 2.4 mg/dL (1.5-2.7); PHOSPHORUS 5.6 mg/dL (2.7-4.5); POTASSIUM 5.1 mmol/L (3.5-5.1); TOTAL BILIRUBIN 0.61 mg/dL (0.20-1.00)
[2018-06-16] MEDS: NEO-SYNEPHRINE 50 MG in NS 250 ML IV SCH ×4 (04:56→13:10)
[2018-06-16 05:12] LABS: ALLEN TEST YES; BE -10.4 mmoll (-3.0-3.0); BLOOD TYPE ARTERIAL; HCO3-(ACT) 16.8 mmoll (20.0-26.0); METHB 0.5 % (0.0-1.5); O2(CT) 13.8 mL/dL (15.0-23.0); O2HB 95.7 % (95.0-99.0); PCO2(98.6) 23 mmHg (35-45); PO2(98.6) 78 mmHg (60-100); SAMPLE BLOOD; THB 10.2 g/dL (11.5-17.4); pH(98.6) 7.37 (7.35-7.45)
[2018-06-16 05:14] LABS: MODALITY CANNULA
[2018-06-16] MEDS: APIDRA SUBQ SCH ×3 (06:00→16:01)
--- NOTE | 2018-06-16 07:21 | Diag Imaging Result Doc PS360 ---
EXAM: CHEST-PORTABLE HISTORY: dyspnea TECHNIQUE: Chest single view COMPARISON: 06/14/2018 FINDINGS: Slight improvement in the inspiratory effort compared the prior study. No cardiomegaly. A nasogastric tube overlies the esophagus and stomach. Mild increased interstitial markings similar to the prior study. No pleural effusions identified. IMPRESSION: Improved inspiratory effort Electronically signed by Wilbert Collazo 06/16/2018 7:19 AM
[2018-06-16] MEDS ORDERED: LEVOPHED 8 MG in D5 1/2 NS 250 ML IV SCH (07:30)
[2018-06-16] MEDS: SODIUM BICARBONATE 8.4% 150 MEQ in D5W 1,000 ML IV SCH ×3 (08:14→17:00)
[2018-06-16] MEDS: LACTULOSE PO SCH (08:17)
[2018-06-16] MEDS: LOKELMA POWDER PACKET PO SCH (08:18)
[2018-06-16] MEDS ORDERED: DURAGESIC 12 MICROGM/HR PATCH TD SCH (09:00)
[2018-06-16] MEDS ORDERED: SOLU-CORTEF IV ONE (09:23)
[2018-06-16] MEDS ORDERED: NORCURON ONE (09:55)
[2018-06-16] MEDS ORDERED: QUELICIN ONE (09:56)
[2018-06-16] MEDS ORDERED: AMIDATE ONE (09:56)
[2018-06-16] MEDS ORDERED: VERSED ONE (09:56)
[2018-06-16] MEDS ORDERED: NS IV SCH (10:00)
[2018-06-16] MEDS ORDERED: CUBICIN IV SCH (10:00)
[2018-06-16] MEDS ORDERED: DIPRIVAN 1% 1,000 MG/100 ML BOTTLE IV SCH (10:00)
[2018-06-16] MEDS ORDERED: NORCURON IV ONE ×2 (10:00→10:01)
[2018-06-16] MEDS ORDERED: VERSED IV ONE (10:02)
--- NOTE | 2018-06-16 10:11 | PROGRESS NOTE ---
DATE: 06/16/2018 SUBJECTIVE: This morning, Ms. Nielson is seen in the ICU. She is critically sick. There is a daughter by the name of Ms. Terrell, who was at the bedside at the time of the encounter. The interim history is that Ms. Nielson continues to have episode of persistent hypotension during last night, and she was started on Marty-Synephrine. Early this morning, she had maxed out on Marty- Synephrine, and was started on Levophed. OBJECTIVE: Vital Signs: Blood pressure is 104/46, pulse is 64, respirations are 28, temperature 97.7 degrees. General: Mr. Nielson is in bed, seems to be in respiratory distress. HEENT: Mucosa is pink and moist. Anicteric. Acyanotic. Neck: Supple. There is positive JVD. Chest: Air entry is bilaterally reduced. There are diffuse crackles in both lung ayon. Cardiovascular: Tachycardic, but no murmurs, no rubs. GI: Abdomen is soft. The patient grunts with abdominal palpation. There is a central midline to right upper quadrant mass consistent with the liver. Extremities: About 1+ pedal edema. : Hoff catheter is in place. BEAD PICKER: The patient is stuporous. Will barely move the lower extremities to painful stimulation, but for the most part, she looks more compromised than yesterday. Pupils are equal and sluggishly reactive. Both lower extremities will show positive Babinski going up. LABORATORY DATA: WBC is 8.54, hemoglobin is 9.2, platelet count of 173,000. Chemistry is also reviewed. Potassium is down to 5.1, bicarb is up to 14, creatinine is 5.9, BUN is 71. The patient's liver enzymes have doubled with AST up to 1150, ALT is 240. Fluid analysis from yesterday has also been reviewed. So far, microbiology data shows the blood cultures are still pending. Peritoneal fluid is still pending. I do not see any Gram stain done on the peritoneal fluid. CURRENT MEDICATIONS: Have also been reviewed. The antimicrobials include cefepime, vancomycin has been discontinued, and daptomycin has been started. IMAGING STUDIES: A chest x-ray this morning shows improved inspiratory effort. ABG this morning showed a lactate level of 11.90. The pH has significantly improved to 7.37. ASSESSMENT: 1. Multiorgan failure. Etiology is currently unclear. 2. Unresponsiveness, likely due to toxic metabolic encephalopathy. 3. Acute kidney injury, presumably acute tubular necrosis. The patient continues to be anuric. 4. Severe high anion gap metabolic acidosis due to lactic acidosis. PH has improved. However, the patient continues to be remarkably high in lactic acid, presumably from hypoperfusion. 5. Refractory hypotension. We think this is a combination of a hypovolemic shock, sepsis, and probably cardiac dysfunctions as well. The patient is currently on Levophed and Marty- Synephrine, and we will give the patient also stress doses of hydrocortisone. 6. History of metastatic breast cancer to bones and to liver noted. 7. Transaminitis, presumably due to shock liver on the background of breast metastases to the liver. Will consult GI as well. 8. Massive ascites. The patient is status post large-volume paracentesis. The fluid analysis has a SAAG which is less than 1.1, which means the physiology behind the ascites is not portal hypertension, and it could probably be something else. At this point, the fluid cell count is predominantly lymphocytic, which would be concerning for either viral or microbacterial or a malignant etiology. Will be waiting on the cytology and cultures 9. Respiratory failure. The patient is clearly tachypneic, has a lot of congestion in the lungs, partly because of the intravenous fluids, but I think it is just the fact that the patient is remarkably sick. At this point, I think she needs to be intubated. However, the family is going to make a decision and let us know if they will want her intubated. In general, Ms. Nielson is extremely and critically sick. She is currently on two pressors. She is on broad-spectrum antibiotics and she is on intravenous fluids. We have started her on stress doses of steroids, and we have changed the vancomycin to daptomycin. She meets criteria to be intubated. However, the family is debating if they want that at all. I have spoken to the daughter who was at the bedside, and by name is Nidhi, and I have also spoken on the phone with Ms. Ramirez, who is said also to be another daughter, and she is going to reach out to the other two brothers and then let us know if they would want her intubated. I discussed this case also yesterday with Nephrology, and because of her hemodynamic instability, they do not think the patient will tolerate any renal replacement therapy at this point. In general, I think Ms. Nielson will most likely not survive this hospital course because of the multiorgan failure and the critical nature of her current diseases. We will await further recommendations from the family, and then go from there. TIME SPENT: Critical time spent is 1 hour 45 minutes. cc: Leroy Christian MD MTDD
--- NOTE | 2018-06-16 10:29 | OPERATIVE NOTE ---
PROCEDURE DATE: TIME OF PROCEDURE: 10:00. TYPE OF PROCEDURE: Endotracheal intubation. INDICATION: Respiratory failure and altered mental status, to protect airway and also for respiratory support. CONSENT: Consent was verbally obtained from Ms. Terrell, who is the daughter who was at the bedside. PROCEDURE NOTE: Ms. Nielson was initially given Versed, and subsequently vecuronium for procedure sedation. When preoxygenation was achieved with bag mask ventilation, a direct visualization with McIntoch laryngoscope was done, and suction was applied. The upper airway had multiple secretions which were suctioned. The vocal cord was directly visualized, and a size 7 ET tube was advanced through the vocal cords. Color change was obtained, and the ET tube was secured. This was at 22 from the tip of the mouth. A chest x-ray has been ordered. The procedure was done by Ms. Bautista (respiratory therapist) under my direct observation. There was not any immediate complication, and we will review the chest x-ray for adequate placement. Family members have been notified. cc: Leroy Christian MD MTDD
[2018-06-16 10:50] LABS: INR 2.3
--- NOTE | 2018-06-16 10:51 | Diag Imaging Result Doc PS360 ---
EXAM: CHEST-1 VIEW HISTORY: ett placement TECHNIQUE: Chest single view COMPARISON: 5:34 AM FINDINGS: Interval placement of an endotracheal tube. The tip is located 2 to 3 cm above the vini. This is in good position. No other interval change. IMPRESSION: Endotracheal tube in good position Electronically signed by Wilbert Collazo 06/16/2018 10:48 AM
[2018-06-16] MEDS ORDERED: MAXIPIME 1 GM in NS 50 ML IV SCH (11:00)
[2018-06-16 11:27] LABS: ALLEN TEST YES; BLOOD TYPE ARTERIAL; O2(CT) 15.5 mL/dL (15.0-23.0); O2HB 97.3 % (95.0-99.0); PCO2(98.6) 28 mmHg (35-45); PO2(98.6) 164 mmHg (60-100); SAMPLE BLOOD; SAO2 98.7 % (95.0-100.0); SRATE 18 BPM; THB 11.1 g/dL (11.5-17.4); TVOL 500 mL; pH(98.6) 7.24 (7.35-7.45)
[2018-06-16 11:28] LABS: MODALITY VENTILATOR
[2018-06-16] MEDS ORDERED: ATIVAN 20 MG in NS 190 ML IV SCH (15:00)
[2018-06-16] MEDS ORDERED: SOLU-CORTEF IV SCH (15:30)
--- NOTE | 2018-06-16 15:53 | GENERAL SURGERY PROGRESS NOTE ---
DATE: 06/16/2018 SUBJECTIVE: She is intubated. Her metabolic acidosis somewhat improved as far as her pH goes but her lactate remains 12.9. INR is 2.3. Her abdomen is distended. She had a paracentesis. Hemodynamically, she is some improved. OBJECTIVE: Potassium is down to 5.1, creatinine is 5.9. ASSESSMENT AND PLAN: This is a 78-year-old female with metastatic carcinoma to the liver and bones related to her breast. Her hyperkalemia is improved with medical management. Her acidosis persists but from a pH standpoint, it is better but her lactate continues to climb. I suspect she is in some degree of liver failure given her worsening INR. She has had a paracentesis. She has adequate peripheral access right now. We will follow along. cc: Cherrie Best MD
[2018-06-16] MEDS ORDERED: SODIUM CHLORIDE 0.9% INJ SCH (16:00)
[2018-06-16] MEDS ORDERED: PROTONIX IV SCH (16:00)
[2018-06-16 16:11] VITALS: BP 109/41
--- NOTE | 2018-06-16 17:03 | CONSULTATION ---
DATE OF CONSULTATION: 06/16/2018 REQUESTING PROVIDER: Dr. Leroy Christian. REASON FOR CONSULTATION: Ventilator management. HISTORY OF PRESENT ILLNESS: This is a 78-year-old female with a medical history of bilateral breast cancer, ongoing intractable nausea, arthritis, and dementia. She presented to the ER from the [facility] on June 14, 2018 with abnormal abdominal ultrasound, hypokalemia, elevated creatinine, lethargic, weakness, and nausea. Initial workup in the ER revealed hypokalemia, acute renal failure, breast cancer metastasized to liver and bone, transaminitis, and ascites. She has been admitted for further evaluation and management. Yesterday, the patient developed progressive hypotension and unresponsiveness. She had worsened hyperkalemia, profound metabolic acidosis secondary to lactic acidosis, and worsened acute renal failure. She was transferred to the ICU from the medical floor. She underwent large volume paracentesis with a total of 5850 mL of cloudy and straw-looking colored fluid aspirated yesterday afternoon by Dr. Christian. Early this morning patient's respiratory status declined significantly with worsening hypotension. She was put on both Levophed and Marty-Synephrine with stress steroids. She was later intubated for airway protection and respiratory support. The patient currently is sedated with no acute distress noted. There is a family member at the bedside who apparently is sleeping with snoring. All information is obtained from the E-chart. PAST MEDICAL/SURGICAL HISTORY: 1. Bilateral breast cancer, now metastasized to bone and liver, followed by Dr. Morales, status post bilateral mastectomy with excision of multiple positive nodes on both sides on April 02, 2017. 2. Ongoing intractable nausea. 3. Arthritis. 4. Dementia. 5. Right groin lymph node removal. SOCIAL HISTORY: The patient is a . She has 3 children. She has no history of tobacco, alcohol, or illicit drug use. FAMILY HISTORY: Positive for stroke and cancer. ALLERGIES: No known drug allergies. REVIEW OF SYSTEMS: Unable to be obtained. PHYSICAL EXAMINATION: Vital Signs: Temperature 97.6 degrees, blood pressure 134/53, pulse 81, respiratory rate 27, oxygen saturation 98% on AC mechanical ventilator with spontaneous rate 12, FiO2 60%, tidal volume 500, and PEEP 5. General: The patient appears chronically ill, malnourished. She is currently intubated, in no acute distress. HEENT: Atraumatic. Trachea midline. ET tube in place. Mucosa pink and dry. Respiratory: Mechanical ventilated. Symmetrical excursion. Clear to auscultation bilaterally. Cardiovascular: Irregularly irregular rate and rhythm. No murmur noted. Gastrointestinal: Bowel sounds present in all 4 quadrants. Semi-formed, distended. Extremities: Bilateral lower extremity pedal edema 2+. No cyanosis. No clubbing. Neurologic: Sedated, unresponsive. LAB DATA: White blood cell 8.54, hemoglobin 9.2, hematocrit 28.1, platelet 173,000. Sodium 138, potassium 5.1, chloride 96, carbon dioxide 14, BUN 71, creatinine 5.9, glucose 115, calcium 7.0, phosphorus 5.6, AST 1,150, ALT 240, alkaline phosphatase 308, plasma lactate 12.4. ABG, pH 7.37, pCO2 23, PO2 78, HC03 16.8, base excess -10.4, and oxyhemoglobin 95.7. IMAGING DATA: Chest x-ray showed improved inspiratory effort with mild increased interstitial markings. ASSESSMENT: This is a 78-year-old female with a medical history of bilateral breast cancer, ongoing intractable nausea, arthritis, dementia. She has been admitted since June 14, 2018 with hypokalemia, acute renal failure, breast cancer metastasized to bone and liver, transaminitis, and ascites. 1. Acute hypoxemic respiratory failure requiring intubation this morning. 2. Toxic metabolic encephalopathy. 3. Acute kidney injury with anuria. 4. Severely decompensated metabolic acidosis with lactic acidosis. Plasma lactate 12.4 this morning. 5. Shock, likely due to a combination of hypovolemia, sepsis, and cardiac dysfunction. 6. Breast cancer metastasized to bone and liver with transaminitis and massive ascites. PLAN: 1. Continue AC mechanical ventilator and we will start weaning trials when appropriate. 2. Continue antibiotics, steroid, and pressors. 3. Follow up with chest x-ray, ABG, CBC, and BMP. 4. Dr. Teixeira, Dr. Morales, and Dr. Best are on board. We will start cardiac consult. 5. Patient currently full code but the prognosis is poor. 6. Continue GI and DVT prophylaxis. 7. Further recommendations pending hospital course. Thank you for the courtesy of this consult. Dictated by ANDREE Murrell for Renay Anthony MD cc: ANDREE Murrell MD [facility]
[2018-06-16] MEDS ORDERED: CARDIZEM IV ONE (17:32)
[2018-06-16] MEDS ORDERED: EPINEPHRINE SYRINGE ONE (18:00)
--- NOTE | 2018-06-16 19:08 | PROGRESS NOTE ---
DATE: 06/16/2018 At about 1725 I passed by the ICU and I noted that the patient was in atrial fibrillation and RVR. Per the nursing staff, she has been in that rhythm for over more than an hour. We did an EKG which confirmed atrial fibrillation, RVR with a rate of about 116, 130. I ordered a 1 time push of Cardizem 10 mg to see if that will control the rate. This was given at about 1735. Shortly after I was called by the nursing staff that the patient had gone into asystole at about 1739. CPR and resuscitation efforts started. Dr. Perez from the ER came to the code [employer]. He directed the code blue for over 15 minutes. When I came the patient was still going through CPR and ACLS. She had gotten a total of about 7 epinephrines and 1 bicarb. However, she still did not have any pulse. I notified the family that resuscitation had been going for over 20 minutes without any success I notified the family members about the passing of Ms. Nielson. However, upon coming back to the bedside patient had regained pulse. Unfortunately she remained very hypoxemic. Patient continued to be on ventilation which was switched to bag mask ventilation. We continued that for couple more minutes. She Unfortunately at 1815 we got a flat line. Again resuscitation effort was unable to revive her. At that time Ms. Nielson was purplish in the extremities. The pupils were completely dilated. She did not have any heart sounds and there was no respiratory effort. She was subsequently pronounced officially at 1815 on 06/16/2018. cc: Leroy Christian MD MTDD
--- NOTE | 2018-06-16 19:39 | DISCHARGE SUMMARY ---
ADMISSION DATE: 06/14/2018 DISCHARGE DATE: 06/16/2018 SUMMARY: DATE OF ADMISSION: 06/14/2018. DATE OF : 06/16/2018. TIME OF : 18:15. CONSULTATIONS DURING THIS ADMISSION: 1. Nephrology was consulted. Patient was seen by Dr. Teixeira. 2. Pulmonary Medicine was consulted. Patient was seen by Dr. Anthony. 3. Surgery was consulted. Patient was seen by Dr. Best. INVASIVE PROCEDURES DONE DURING THIS ADMISSION: 1. Abdominal paracenteses was done. 2. Endotracheal intubation was also done. IMAGING STUDIES: Of significance, a chest x-ray on presentation showed somehow shallow inspiration. A CT scan of the thorax, abdomen, and pelvis did show possible aspiration pneumonia, not atelectasis, large volume ascites, diffuse heterogeneous liver representing diffuse metastatic disease. Mesenteric carcinomatosis could not be excluded. Diffuse skeletal metastases. DIAGNOSIS AT THE TIME OF : 1. Multiorgan failure. 2. Global encephalopathy likely due to toxic infectious etiologies. 3. Acute kidney injury presumably acute tubular necrosis. 4. Severe high anion gap metabolic acidosis due to lactic acidosis. 5. Refractory hypotension, presumably combination of hypovolemic shock, septic shock, and possibly cardiac dysfunction. 6. 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 7. Transaminitis secondary to shock liver on the background of breast metastasis to liver. (Acute liver failure.) 8. Massive ascites status post large volume paracenteses. 9. Acute hypoxemic respiratory failure. 10. Persistent lactic acidosis. PRESENTING COMPLAINT: Pains all over the body. The patient sent directly from [place] due to acute kidney injury. HISTORY OF PRESENTING COMPLAINT: Ms. Nielson is a 78-year-old female, who follows up with Dr. Jeronimo for metastatic breast cancer to bones and liver, presented because of abnormal labs in the oncology office. On presentation, patient was found also to have a potassium of 6.3. BUN was 73. Creatinine was 4.8. She was admitted to the medical floor initially for medical care. HOSPITAL COURSE: Ms. Nielson was initially admitted to the medical floor. Was aggressively fluid resuscitated. However, over the course of the night, she did not improve. She was subsequently transferred to the ICU where she was started on vasopressors, and abdominal paracentesis was done. During the hospital course, the potassium did get slightly better. However, she continues to be completely anuric, and her mentation continued to get worse. Today, the patient was intubated because of respiratory failure, and she did have another pressor added to the initial one. Later this evening, she went into atrial fibrillation RVR. Cardizem was given to control the heart rate. Unfortunately even after the best efforts of care. Ms. Nielson did not respond to medical therapy. The patient was seen by Nephrology and was also seen by Pulmonary Medicine as well as surgery. Ms. Nielson went into cardiac arrest at about 17:39. BLS and ACLS protocol were all followed accordingly. However, after almost 20 minutes of resuscitation, she did not respond. A code was called. The patient was subsequently pronounced at 18:15. The patient and family members were notified. cc: Leroy Christian MD
--- NOTE | 2018-06-17 08:03 | EKG Report ---
Test Performed on : 06/15/2018 05:59:02 AM Test Reason : hyperkalemia Blood Pressure : / mmHG Vent. Rate : 077 BPM Atrial Rate : 077 BPM P-R Int : 152 ms QRS Dur : 084 ms QT Int : 400 ms P-R-T Axes : 043 005 021 degrees QTc Int : 452 ms Normal sinus rhythm. Normal ECG When compared with ECG of 14-JUN-2018 15:06, (Unconfirmed) No significant change was found Confirmed by Suzi PRINGLE, Anthony ([id number]) on 06/17/2018 9:13:40 AM
--- NOTE | 2018-06-17 08:53 | EKG Report ---
Test Performed on : 06/14/2018 3:06:45 PM Test Reason : electrolytes derangement Blood Pressure : / mmHG Vent. Rate : 074 BPM Atrial Rate : 074 BPM P-R Int : 150 ms QRS Dur : 082 ms QT Int : 408 ms P-R-T Axes : -10 002 041 degrees QTc Int : 452 ms Normal sinus rhythm. Normal ECG When compared with ECG of 27-MAR-2017 13:09, Previous ECG has undetermined rhythm, needs review Unconfirmed Result
[2018-06-17 10:04] LABS: HEPATITIS PROFILE ACUTE SEE COMMENTS
--- NOTE | 2018-06-17 11:25 | EKG Report ---
Test Performed on : 06/16/2018 4:30:43 PM Test Reason : TACHY Blood Pressure : / mmHG Vent. Rate : 116 BPM Atrial Rate : 120 BPM P-R Int : 000 ms QRS Dur : 090 ms QT Int : 334 ms P-R-T Axes : 000 -07 072 degrees QTc Int : 464 ms Atrial fibrillation. with rapid ventricular response. Low voltage QRS Abnormal ECG When compared with ECG of 16-JUN-2018 01:51, (Unconfirmed) Atrial fibrillation. has replaced Junctional rhythm. Vent. rate has increased BY [address] no longer depressed in Lateral leads Nonspecific T wave abnormality no longer evident in Lateral leads Confirmed by Suzi PRINGLE, Nathony ([id number]) on 06/18/2018 8:34:54 AM
--- NOTE | 2018-06-17 13:06 | EKG Report ---
Test Performed on : 06/16/2018 01:51:00 AM Test Reason : CCU. No order in [place] Blood Pressure : / mmHG Vent. Rate : 070 BPM Atrial Rate : 054 BPM P-R Int : 000 ms QRS Dur : 094 ms QT Int : 420 ms P-R-T Axes : 000 040 051 degrees QTc Int : 453 ms Accelerated Junctional rhythm. with premature supraventricular complexes. Nonspecific ST and T wave abnormality Abnormal ECG When compared with ECG of 16-JUN-2018 01:50, (Unconfirmed) premature ventricular complexes. are no longer present premature supraventricular complexes. are now present Confirmed by Suzi PRINGLE, Anthony ([id number]) on 06/18/2018 8:34:38 AM
[2018-06-22] MEDS ORDERED: VANCOMYCIN 1 GM/NS 1 GM/250 ML IVPB IV SCH (22:00)
== END 2018-06-16 18:15 | disposition expired | DRG 682 ==
LOC: ED 13:41 → SUATTDRO 22:02 → 3N 22:02 → ICU 06-15 10:24
PROVIDERS: ATTEND Internal Medicine
CPT/HCPCS: 31500; 49083; 51702; 70450; 71010; 71045; 71250; 74176; 76705; 80048; 80053; 80074; 81001; 82042; 82140; 82150; 82550; 82553; 82570; 82805; 82948; 83605; 83735; 84100; 84132; 84157; 84300; 84484; 84540; 85025; 85610; 85730; 87040; 87070; 87075; 87088; 87205; 88112; 89051; 93005; 93010; 94002; 94640; 94761; 96361; 96374; 96375; 99285; 99291; A9270; C1725; C9113; J0171; J0330; J0610; J0692; J0878; J1720; J2060; J2250; J2310; J2370; J2405; J3370; J7030; J7040; J7050; J7070; J7120; P9047; S0164; XXXXX